=== PATIENT | male | born 1975 | race Caucasian/White ===

== ENCOUNTER 2021-05-16 09:23 | Emergency (ER) | payer MEDICARE, MEDICAID, SELFPAY ==
--- NOTE | 2021-05-16 09:45 | DI.RAD_ITS ---
Exam(s) XR HAND LT COMPLETE EXAM: XR HAND LT COMPLETE CLINICAL HISTORY: shut in door, pain. TECHNIQUE: 2D digital imaging was performed. COMPARISON: No exams were available for comparison FINDINGS: No evidence of acute fracture or dislocation. However, there is a foreign body noted in the soft tis sues of the 2nd-index finger at the level of the middle phalanx, located palm are-lateral. This is a pproximately 4 millimeters in from the skin. It exhibits less than metallic density. No other soft tissue densities noted. Deformity in the neck of the 5th metacarpal has appearance of a healed fract ure site. IMPRESSION: Findings as above but without evidence of acute fracture. DATA REPOSITORY: RADIATION DOSE DELIVERED:
[2021-05-16 09:50] VITALS: BP 117/83; PULSE 73; RESP 16; TEMP 36.8; O2SAT 99
--- NOTE | 2021-05-16 09:52 | ED.GENADUL_ITS ---
Discharge Plan Disposition Patient Disposition: HOME Condition: Stable Discharge Details Clinical Impression: Finger injury Primary Care Provider: None,None ED Provider: Irving Motley Home Meds and New Rx's Prescriptions: Continued triamcinolone acetonide 80 GM cream 0 gm Topical TID PRN PRN (Reason: Itching) Qty: 1 RF: 0 Discharge Instructions Instructions: Finger Sprain (ED) Additional Instructions: Official report of your x-ray has not been completed, if it reveals anything I will personally contact you. Kayden taping and a finger splint as needed, advance activity as tolerated. [id number] Tylenol and/or Motrin as directed for discomfort. Rest, elevate, cool compresses every 2 hours for 20 minutes. Please watch for new or worsening symptoms and return to the ER for any concern Medical Decision Making 46-year-old gentleman presents with crush injury to his right second and third digits. Neuro, vascular, tendon intact. No obvious deformity. Will obtain x- ray of his hand to rule out bony abnormality. Will perform digital block of the third digit. No subungual hematoma present. Using a total of 8 cc, [id number] mixture of 0.5% bupivacaine and 2% lidocaine performed a digital block of the third digit, patient tolerated well, no complications. Patient now asymptomatic X-ray read by me as no acute fracture or dislocation. Question foreign body of the third digit but this clinically is not related to his injury today. Patient would like to be discharged, does not want to wait for the official read. I will contact him if the official read is different than my pulmonary read. Second and third fingers kayden taped and AlumaFoam splint applied Medical Records Medical records reviewed: Yes I reviewed the patient's medical records. Imaging Data Radiologic Study: Attestation: I personally reviewed and interpreted this imaging study as follows: Imaging: X-Ray Radiologist's impression: Exam(s) XR HAND LT COMPLETE EXAM: XR HAND LT COMPLETE CLINICAL HISTORY: shut in door, pain. TECHNIQUE: 2D digital imaging was performed. COMPARISON: No exams were available for comparison FINDINGS: No evidence of acute fracture or dislocation. However, there is a foreign body noted in the soft tissues of the 2nd-index finger at the level of the middle phalanx, located palm are-lateral. This is approximately 4 millimeters in from the skin. It exhibits less than metallic density. No other soft tissue densities noted. Deformity in the neck of the 5th metacarpal has appearance of a healed fracture site. IMPRESSION: Findings as above but without evidence of acute fracture. HPI General Mode of arrival: ambulatory . Date/Time Provider Initiated Documentation: 05/16/21 09:52 . Limitations to Documentation: no limitations . Information obtained by: patient . HPI Narrative: This is a 46-year-old gentleman, [id number], denies significant past medical history, presenting for left hand injury after shutting his second and third digits in a truck door. This occurred around 730 this morning. Reports the pain in the index finger is mild, has full range of motion, pain in the middle finger is more severe and worse with movement, has a hard time moving his DIP. Reports minimal tingling in the tip of his third finger. Denies any other injury. Denies break in the skin. Did not take any medication prior to arrival. Related Data Home Medications Medication Instructions Recorded Confirmed triamcinolone acetonide 0 gm TOPICAL TID PRN PRN #1 tube 11/29/14 05/16/21 Previous Rx's Medication Instructions Recorded triamcinolone acetonide 0 gm TOPICAL TID PRN PRN #1 tube 11/29/14 Allergies Allergy/AdvReac Type Severity Reaction Status Date / Time No Known Allergies Allergy Unverified 05/16/21 09:51 General Stated Complaint: Orthopedic KALINA: 4 Review of Systems Constitutional Constitutional: Denies weakness Musculoskeletal Musculoskeletal: Denies deformity, Reports arthralgias, Denies numbness, Reports stiffness and Reports tingling Integumentary/Breasts Skin/Breast: Denies erythema Neurologic Neurologic: Denies numbness, Reports tingling and Denies weakness [facility] Social History Smoking/Tobacco Use Status: Current every day Tobacco Type: cigarettes Smoking risk assessment performed?: Yes Alcohol Intake: never Drug use: Daily Substance use type: marijuana Do you feel safe at home: Yes Do you feel safe in your relationship?: Yes Exam Const General: cooperative, healthy appearing, comfortable and no acute distress Orientation: alert and awake [facility] Head: normal to inspection, normocephalic and atraumatic Eyes General: appearance normal, both eyes and all related structures Conjunctivae: conjunctivae normal Neck Neck: normal visual inspection, trachea midline and supple Resp Effort & Inspection: normal respiratory effort and able to speak in complete sentences Cardio Rate: regular rate Rhythm: regular rhythm Skin General skin exam: no rashes or lesions noted Neuro General: patient alert, patient awake, moves all extremities and no focal motor deficits Cognition: normal cognition Sensory Exam: no sensory deficits noted Extrem General: capillary refill normal Hand/finger images: 1. Diffuse mild discomfort. Skin is intact. Index finger 5-5 strength, neuro, vascular, tendon intact. Normal capillary refill. No subungual hematoma. No deformity. Third digit reveals full extension, limited flexion of the DIP secondary to pain. Tendon function appears to be intact. Skin intact. No subungual hematoma. No deformity. Normal radial pulse as well. Psych Appearance: grossly normal Mental Status: mental status grossly normal Course Vital Signs Vital signs: Vital Signs Temperature 36.8 C 05/16/21 09:50 Pulse 73 05/16/21 09:50 Respiratory Rate 16 05/16/21 09:50 Blood Pressure 117/83 05/16/21 09:50 Pulse Oximetry 99 05/16/21 09:50 Temperature 36.8 C 05/16/21 09:50 Temperature Source Skin 05/16/21 09:50 Pulse 73 05/16/21 09:50 Respiratory Rate 16 05/16/21 09:50 Respiratory Effort Non-Labored 05/16/21 09:52 Blood Pressure 117/83 05/16/21 09:50 Blood Pressure Position Sitting 05/16/21 09:50 Pulse Oximetry 99 05/16/21 09:50 Oxygen Delivery Method Room Air 05/16/21 09:50 Oxygen Flow Rate 0 05/16/21 09:50 Pain Level 5 05/16/21 09:50
== END 2021-05-16 11:33 | disposition home or self-care (01) ==
PROVIDERS: Emergency Provider Physician Assistant
DX: S67.193A Crushing injury of left middle finger, initial encounter (principal); S67.191A Crushing injury of left index finger, initial encounter; W23.0XXA Caught, crushed, jammed, or pinched between moving objects, initial encounter
CPT/HCPCS: 29130; 99283; 73130

== ENCOUNTER → 2022-02-12 16:52 | Outpatient (CLI) | payer MEDICARE, MEDICAID, SELFPAY ==
--- NOTE | 2022-02-12 | DI.RAD_ITS ---
Exam(s) XR SHOULDER LT COMPLETE 2+V EXAM: XR SHOULDER LT COMPLETE 2+V CLINICAL HISTORY: PAIN LT SHOULDER M25.512, PAIN FOR YEARS WORSE LAST COUPLE DAYS, EVALUATE. TECHNIQUE: 2D digital imaging was performed. Three views. COMPARISON: CR CHEST 2 VIEWS PA,LAT from 01/23/2010 FINDINGS: BONES: No acute fracture is present. . No bony destructive lesion is seen. JOINTS: No dislocation present. No significant degenerative changes. Visualized portions of the lef t ribs are unremarkable. SOFT TISSUE: Normal. No tendon or joint space calcifications are seen. IMPRESSION: Unremarkable radiographs of the left shoulder. DATA REPOSITORY: RADIATION DOSE DELIVERED:
== END ==
PROVIDERS: Visit Provider Physician Assistant Medical
DX: M25.512 Pain in left shoulder (principal)
CPT/HCPCS: 73030

== ENCOUNTER 2022-05-27 09:51 | Emergency (ER) | payer MEDICARE, MEDICAID, SELFPAY ==
[2022-05-27] VITALS (54 sets, daily range): BP systolic 98–146; BP diastolic 71–113; PULSE 51–81; RESP 8–26; TEMP 36.8; O2SAT 94–100
--- NOTE | 2022-05-27 09:45 | RT.EKG_ITS ---
APPROVED REPORT Exam: Resting ECG Reason for Exam: chest pain Patient Location: E HR:70 bpm ECG Measurements Heart Rate 70 AXIS IL 176 P 78 QRSd 84 QRS 49 QT 375 T 65 QTc 393 Conclusion Sinus rhythm...normal P axis, V-rate 60- 99 Atrial premature complex...SV complex w/ short R-R interval
--- NOTE | 2022-05-27 09:57 | ED.GENADUL_ITS ---
Discharge Plan Disposition Patient Disposition: HOME Condition: Improving Discharge Details Clinical Impression: Chest pain, Pulmonary nodule Primary Care Provider: None,None ED Provider: Irving Motley Home Meds and New Rx's Prescriptions: No Action No Known Home Meds Discharge Instructions Instructions: Chest Pain (ED) Additional Instructions: At this time your rapid cardiac rule out here in the ER is unremarkable. Your pain and symptoms have resolved completely. Given your presentation and overall risk I have recommended admission for further evaluation but you have declined and would rather pursue this as an outpatient. Please take a baby aspirin daily. Please watch for new or worsening symptoms and return immediately to the ER. I have placed you on our care management list to expedite outpatient primary care follow-up to set up initial PCP visit, further evaluation of your chest pain and pulmonary nodules. I am also setting you up for an outpatient stress test for further evaluation of your chest pain. Discharge Data Discharge Date/Time-TO BE ENTERED AT DEPARTURE: 05/27/22 14:48 Medical Decision Making This is a 47-year-old gentleman, denies significant past medical history, is a smoker, does not regularly seek medical attention, is presenting to the ER today for chest pressure associated with intermittent sharp pain as well as discomfort radiating down his left arm with paresthesias. He states this began while he was working, lifting boxes, denies injury. Clinically he appears well, nontoxic, hemodynamically stable. Plan is to obtain a cardiac work-up, provide full dose aspirin, and will obtain CTA of his chest to rule out PE-dissection, as he does report pain radiating into his back. Differential is broad, includes but not excluded to ACS, PE, dissection, pancreatitis, musculoskeletal etiology, pneumonia, etc. Patient given a single full dose aspirin. Upon reevaluation he denies any change in his discomfort. At this time I believe giving nitro is reasonable. With 3 nitro total his pain went from a 7 down to a 5 down to 3 down to a 0. Patient is currently asymptomatic. Laboratory values do not reveal any obvious emergent process. D-dimer is unremarkable at 183, electrolytes normal, no evidence of leukocytosis, normal renal function, mag 2.1 troponin less than 50 BNP 49 COVID-negative lipase 117. CT reveals a small pericardial effusion and to lung nodules. Discussed findings with patient. Discussed the importance of outpatient follow-up regarding both. Patient remains asymptomatic and prefer to be discharged home. I did convey my concern with him regarding his overall presentation and did not feel as though observation admission to our facility for further cardiac work-up was indicated. Patient understands this, declines, and assures me that he will return to the ER for new or worsening symptoms. He is agreeable to awaiting a delta troponin. Repeat EKG performed at 1329 reveals sinus bradycardia, ventricular to 57, no STEMI. Delta troponin remains less than 50. Upon reevaluation he is resting comfortably, remains asymptomatic, and hemodynamically stable. We once again discussed his risk factors, overall presentation and my recommendations for admission. He is appreciative of this but declines. He is of sound mind and has the capacity to make this decision. I will place him on the care management list to help expedite outpatient primary care follow-up and I will also set him up for an outpatient stress test. Strict discharge and return precautions were provided. Patient understands, is agreeable to this plan, and has no additional questions or concerns upon discharge. This documentation was generated using [employer] system, please disregard any oddities of phrase or misspellings. Medical Records Medical records reviewed: Yes I reviewed the patient's medical records. Imaging Data Radiologic Study: Attestation: I personally reviewed and interpreted this imaging study as follows: Imaging: CT Scan Radiologist's impression: Exam(s) CT CHEST PE CTA EXAM: CT CHEST PE CTA CLINICAL HISTORY: chest pain, radiates to back, sob. TECHNIQUE: Imaging Protocol: CT angiography of the chest was performed using pulmonary embolus protocol. Multi planar reconstructions were performed. CONTRAST MATERIAL: Intravenous: Omnipaque 350 Contrast volume: 100 cc COMPARISON: CR CHEST 2 VIEWS PA,LAT from 01/23/2010 FINDINGS: CHEST: PULMONARY ARTERIES: There are no intraluminal filling defects to suggest acute pulmonary emboli. LUNGS: There are emphysematous changes in both lung joseph.. There are no confluent infiltrates nor pleural effusions although there are dependent markings in both lung bases evident. In addition, there is a noncalcified right lower lobe nodule measuring 8 by 7 millimeters (series 4/image 37). Another smaller 4-5 millimeter nodule seen immediately adjacent to this. No other nodule seen in either lung field. No significant focal findings in the trachea and mainstem bronchi. MEDIASTINUM: There is no hilar nor mediastinal adenopathy. Visualized thyroid unremarkable. CARDIAC: Heart size is normal. There is a small anteriorly located pericardial effusion with maximum thickness 7 millimeters.Caliber of the thoracic aorta is within normal limits. No evidence of aortic dissection. There is no significant shift of the interventricular septum. PARTIALLY VISUALIZED UPPERMOST ABDOMEN: No obvious findings OSSEOUS: No significant osseous lesions.. IMPRESSION: 1. No evidence of acute pulmonary emboli. No evidence of pulmonary infarction.No aortic dissection. There is, however, small pericardial effusion evident. Maximum thickness is 7 millimeters. 2. There are 2 adjacent nodules in the right lower lobe, the larger of the 2 measuring 8 x 7 millimeters. This requires follow-up to rule out malignancy. 3. No intrathoracic adenopathy evident. Lab Data Lab results reviewed: Yes I reviewed the patient's lab results. Labs: Laboratory Tests Range/Units 05/27/22 05/27/22 05/27/22 10:00 10:00 10:00 WBC (4.4-10.8) 10^3/uL 9.44 RBC (4.36-5.78) 10^6/uL 5.10 Hgb (13.5-17.5) g/dL 15.6 Hct (40.0-50.0) % 45.2 MCV (80-95) fL 89 MCH (27.0-33.0) pg 30.6 MCHC (32.0-36.0) % 34.5 RDW (11.8-14.1) % 11.9 Plt Count (130-400) 10^3/uL 208 MPV (8.0-11.0) fL 10.6 Immature Gran % 0.2 Neutrophils % 63.8 Lymphocytes % 25.4 Monocytes % 7.3 Eosinophils % 2.3 Basophils % 1.0 Nucleated RBC % (0.0-0.3) % 0.0 Absolute Neutrophils (1.2-6.7) 10^3/uL 6.02 Absolute Lymphocytes (1.2-3.4) 10^3/uL 2.40 Absolute Monocytes (0.1-0.8) 10^3/uL 0.69 Absolute Eosinophils (0.0-0.7) 10^3/uL 0.22 Absolute Basophils (0.0-0.2) 10^3/uL 0.09 PT (9.3-11.0) sec 10.5 INR (0.9-1.1) 1.0 APTT (21.0-27.5) sec 25.2 D-Dimer (<500) ng/mlFEU 183 Sodium (136-145) mmol/L 139 Potassium (3.5-5.1) mmol/L 4.0 Chloride (98-107) mmol/L 103 Carbon Dioxide (21.0-32.0) mmol/L 28.4 Anion Gap (3-11) mmol/L 7.6 BUN (7-18) mg/dL 11 Creatinine (0.70-1.30) mg/dL 1.1 Estimated GFR/1.73 m2 (mL/min/1.73m2) >= 60.00 Glucose (74-106) mg/dL 103 Calcium (8.5-10.1) mg/dL 8.6 Magnesium (1.8-2.4) mg/dL 2.1 Total Bilirubin (0.2-1.0) mg/dL 0.5 AST (15-37) U/L 14 L ALT (16-63) U/L 17 Alkaline Phosphatase (46-116) U/L 45 L Troponin I (<or=60) ng/L < 50 NT-Pro-B Natriuret Pep (<300) pg/mL 49 Total Protein (6.4-8.2) g/dL 8.1 Albumin (3.4-5.0) g/dL 4.4 Lipase (73-393) U/L COVID-19 Source SARS-CoV-2 (PCR) (Negative) Range/Units 05/27/22 05/27/22 05/27/22 10:00 10:16 13:27 WBC (4.4-10.8) 10^3/uL RBC (4.36-5.78) 10^6/uL Hgb (13.5-17.5) g/dL Hct (40.0-50.0) % MCV (80-95) fL MCH (27.0-33.0) pg MCHC (32.0-36.0) % RDW (11.8-14.1) % Plt Count (130-400) 10^3/uL MPV (8.0-11.0) fL Immature Gran % Neutrophils % Lymphocytes % Monocytes % Eosinophils % Basophils % Nucleated RBC % (0.0-0.3) % Absolute Neutrophils (1.2-6.7) 10^3/uL Absolute Lymphocytes (1.2-3.4) 10^3/uL Absolute Monocytes (0.1-0.8) 10^3/uL Absolute Eosinophils (0.0-0.7) 10^3/uL Absolute Basophils (0.0-0.2) 10^3/uL PT (9.3-11.0) sec INR (0.9-1.1) APTT (21.0-27.5) sec D-Dimer (<500) ng/mlFEU Sodium (136-145) mmol/L Potassium (3.5-5.1) mmol/L Chloride (98-107) mmol/L Carbon Dioxide (21.0-32.0) mmol/L Anion Gap (3-11) mmol/L BUN (7-18) mg/dL Creatinine (0.70-1.30) mg/dL Estimated GFR/1.73 m2 (mL/min/1.73m2) Glucose (74-106) mg/dL Calcium (8.5-10.1) mg/dL Magnesium (1.8-2.4) mg/dL Total Bilirubin (0.2-1.0) mg/dL AST (15-37) U/L ALT (16-63) U/L Alkaline Phosphatase (46-116) U/L Troponin I (<or=60) ng/L < 50 NT-Pro-B Natriuret Pep (<300) pg/mL Total Protein (6.4-8.2) g/dL Albumin (3.4-5.0) g/dL Lipase (73-393) U/L 117 COVID-19 Source Nasal/Nares SARS-CoV-2 (PCR) (Negative) Negative ECG Data Attestation: I personally reviewed and interpreted this ECG (s) as follows: Interpretation: Sinus rhythm, ventricular to 70. Atrial premature complex. No STEMI. HPI General Mode of arrival: wheelchair . Date/Time Provider Initiated Documentation: 05/27/22 09:52 . Limitations to Documentation: no limitations . Information obtained by: patient . History of Present Illness 47 year old M presents to the emergency department with the chief complaint of chest pain, described as moderate, with intensity rated at 7. Quality is described as sharp and other (pressure), and is localized to the chest. Patient extremity (left upper ). Patient started experiencing this hour(s) (1) and it has been constant (pressure) and intermittent (sharp). No relieving factors improve symptom(s), No exacerbating factors reported . Patient notes shortness of breath and other (LUE paresthesias). Patient did receive the following treatments prior to arrival, none Related Data Home Medications Medication Instructions Recorded Confirmed Unknown [No Known Home Meds] 05/27/22 05/27/22 Allergies Allergy/AdvReac Type Severity Reaction Status Date / Time No Known Allergies Allergy Unverified 05/27/22 13:10 General KALINA: 4 Review of Systems Constitutional Constitutional: Denies fatigue, Denies fever(s), Denies headache(s) and Denies weakness Eyes Eyes: Denies change in vision ENT Ears, Nose, Mouth, and Throat: Denies headache(s) and Denies neck pain Cardiovascular Cardiovascular: Reports chest pain and Reports dyspnea Respiratory Respiratory: Denies cough and Reports dyspnea Gastrointestinal Gastrointestinal: Denies abdominal pain, Denies nausea and Denies vomiting Musculoskeletal Musculoskeletal: Reports back pain (left upper), Denies neck pain, Denies numbness and Reports tingling Integumentary/Breasts Skin/Breast: Denies rash Neurologic Neurologic: Denies headache(s), Denies numbness, Reports tingling and Denies weakness Endocrine Endocrine: Denies fatigue Hematologic/Lymphatic Hematologic/Lymphatic: Denies easy bleeding and Denies easy bruising PFSH All Active Problems (Updated 05/28/22 @ 09:08 by LUISA Grady) Chest pain (Acute) Pulmonary nodule (Acute) Mood disorder (Acute) Antisocial personality disorder (Acute) Tobacco abuse (Acute) PTSD (post-traumatic stress disorder) (Acute) Borderline personality disorder (Acute) Finger injury (Acute) Social History Smoking/Tobacco Use Status: Current every day Tobacco Type: cigarettes Smoking risk assessment performed?: Yes Alcohol Intake: never Drug use: Daily Substance use type: marijuana Do you feel safe at home: Yes Do you feel safe in your relationship?: Yes Exam Const General: cooperative, healthy appearing, comfortable and no acute distress Orientation: alert, awake and oriented x3 HENMT Head: normal to inspection, normocephalic and atraumatic Face and sinus: normal facial exam Mouth: moist mucous membranes Eyes General: appearance normal, both eyes and all related structures Conjunctivae: conjunctivae normal Neck Neck: normal visual inspection, full ROM, no meningeal signs, trachea midline, supple and nontender Chest Chest: normal inspection of the chest and normal palpation of entire chest wall Resp Effort & Inspection: normal respiratory effort and able to speak in complete sentences Auscultation: clear to auscultation bilaterally Cardio Rate: regular rate Rhythm: regular rhythm GI Inspection: normal to inspection Palpation: soft, not firm, no guarding, no pulsatile masses and nontender Auscultation: normal bowel sounds Back/Spine/Pelvis Back: no CVA tenderness and No back tenderness Skin General skin exam: no rashes or lesions noted Neuro General: patient alert, patient awake, patient oriented x3, moves all extremities and no focal motor deficits Cognition: normal cognition Speech: speech normal Gait: normal gait Motor: muscle tone normal throughout Sensory Exam: no sensory deficits noted Extrem General: normal to inspection, full ROM, capillary refill normal, no pedal edema and no calf tenderness Psych Appearance: grossly normal Mental Status: mental status grossly normal
--- NOTE | 2022-05-27 10:00 | DI.CT_ITS ---
Exam(s) CT CHEST PE CTA EXAM: CT CHEST PE CTA CLINICAL HISTORY: chest pain, radiates to back, sob. TECHNIQUE: Imaging Protocol: CT angiography of the chest was performed using pulmonary embolus celeste col. Multi planar reconstructions were performed. CONTRAST MATERIAL: Intravenous: Omnipaque 350 Contrast volume: 100 cc COMPARISON: CR CHEST 2 VIEWS PA,LAT from 01/23/2010 FINDINGS: CHEST: PULMONARY ARTERIES: There are no intraluminal filling defects to suggest acute pulmonary emboli. LUNGS: There are emphysematous changes in both lung joseph.. There are no confluent infiltrates nor pleural effusions although there are dependent markings in both lung bases evident. In addition, the re is a noncalcified right lower lobe nodule measuring 8 by 7 millimeters (series 4/image 37). Anoth er smaller 4-5 millimeter nodule seen immediately adjacent to this. No other nodule seen in either l jose field. No significant focal findings in the trachea and mainstem bronchi. MEDIASTINUM: There is no hilar nor mediastinal adenopathy. Visualized thyroid unremarkable. CARDIAC: Heart size is normal. There is a small anteriorly located pericardial effusion with maximum thickness 7 millimeters.Caliber of the thoracic aorta is within normal limits. No evidence of aortic dissection. There is no significant shift of the interventricular septum. PARTIALLY VISUALIZED UPPERMOST ABDOMEN: No obvious findings OSSEOUS: No significant osseous lesions.. IMPRESSION: 1. No evidence of acute pulmonary emboli. No evidence of pulmonary infarction.No aortic dissection. There is, however, small pericardial effusion evident. Maximum thickness is 7 millimeters. 2. There are 2 adjacent nodules in the right lower lobe, the larger of the 2 measuring 8 x 7 millimet ers. This requires follow-up to rule out malignancy. 3. No intrathoracic adenopathy evident. RADIATION DOSE DELIVERED: 392.93mGy.cm Total DLP DATA REPOSITORY: All CT scans at this facility are submitted to the National Radiology Data Registry (NRDR) Dose Index Registry (DIR) with the [employer] ([employer]). RADIATION OPTIMIZATION: All CT scans at this facility use at least one of these dose optimization te chniques: automated exposure control; mA and/or kV adjustment per patient size (includes targeted exa ms where dose is matched to clinical indication); or iterative reconstruction.
[2022-05-27] MEDS: Aspirin 81 MG CHEW 324 MG CH (10:15)
[2022-05-27] MEDS: Normal Saline 1,000 ML 125 ML IV (10:17)
[2022-05-27 10:22] LABS: Source Nasal/Nares
[2022-05-27 10:23] LABS: Abs Immature Grans 0.02 10^3/uL (0.0-0.06); Absolute Basophil Count 0.09 10^3/uL (0.0-0.2); Absolute Eosinophil Count 0.22 10^3/uL (0.0-0.7); Absolute Monocyte Count 0.69 10^3/uL (0.1-0.8); Absolute Neutrophil Count 6.02 10^3/uL (1.2-6.7); Eosinophils % 2.3; HCT 45.2 % (40.0-50.0); HGB 15.6 g/dL (13.5-17.5); Immature Grans % 0.2; Lymphocytes % 25.4; MCH 30.6 pg (27.0-33.0); MCHC 34.5 % (32.0-36.0); MCV 89 fL (80-95); MPV 10.6 fL (8.0-11.0); Monocytes % 7.3; Neutrophils % 63.8; Platelet Count 208 10^3/uL (130-400); RDW 11.9 % (11.8-14.1); RDW-SD 38.9 fL; WBC 9.44 10^3/uL (4.4-10.8)
[2022-05-27 10:37] LABS: PTT Activated 25.2 sec (21.0-27.5); Prothrombin Time 10.5 sec (9.3-11.0)
[2022-05-27 10:45] LABS: ALT 17 U/L (16-63); AST 14 U/L (15-37); Albumin 4.4 g/dL (3.4-5.0); Alkaline Phosphatase 45 U/L (46-116); Anion Gap 7.6 mmol/L (3-11); BUN 11 mg/dL (7-18); Bilirubin, Total 0.5 mg/dL (0.2-1.0); CO2 28.4 mmol/L (21.0-32.0); CREATININE 1.1 mg/dL (0.70-1.30); Calcium 8.6 mg/dL (8.5-10.1); Chloride 103 mmol/L (98-107); Glucose 103 mg/dL (74-106); Magnesium 2.1 mg/dL (1.8-2.4); NT-proBNP 49 pg/mL (<300); Sodium 139 mmol/L (136-145); Total Protein 8.1 g/dL (6.4-8.2); Troponin I < 50 ng/L (<or=60)
[2022-05-27 10:53] LABS: COVID-19 PCR Negative (Negative)
[2022-05-27 10:54] LABS: D-Dimer 183 ng/mlFEU (<500)
[2022-05-27] MEDS: nitroGLYcerin 0.4 MG TAB SL ×3 (10:55→11:53)
[2022-05-27] MEDS: Normal Saline Flush 10 ML SYR IVP (10:56)
[2022-05-27] MEDS: Omnipaque 350 MG/ML 100 ML BTL IJ (10:56)
[2022-05-27 11:12] LABS: Lipase 117 U/L (73-393)
--- NOTE | 2022-05-27 13:00 | RT.EKG_ITS ---
APPROVED REPORT Exam: Resting ECG Reason for Exam: Chest pain Patient Location: E HR:57 bpm ECG Measurements Heart Rate 57 AXIS CA 185 P 84 QRSd 85 QRS 50 QT 418 T 62 QTc 406 Conclusion Sinus bradycardia...rate< 60
[2022-05-27 13:53] LABS: Troponin I < 50 ng/L (<or=60)
--- NOTE | 2022-05-27 16:07 | NUR.NOTE ---
Per Irving Motley, patient needs a follow up ruby with a PCP for chest pain, he doesn't have one. Put the referral in the home day care provider's box for follow up. Nursing Note:
--- NOTE | 2022-05-28 15:06 | CMACTNOTE_ITS ---
- If Service Date Differs Date of service: 05/28/22 Time of Service: 15:06 Care Management Activity Note Justyn presents in the ED for chest pain and a pulmonary nodule. At the request of ED provider, ROSA coordinates a referral to Eliza Diaz NP, of [facility], on-call provider, to assist Justyn in obtaining a follow up appointment. ROSA receives a phone call from Karoline, acute care physician at [facility] ([facility]), andrew Alejandra. She advises Justyn stopped by [facility] to tile picker a new patient packet as he wishes to establish care with them. They, however, are unable to provide him with an appointment for several weeks, so Justyn will need to follow up with Eliza Diaz NP, the provider who was information services vice president at the time of his ED visit.
== END 2022-05-27 14:48 | disposition home or self-care (01) ==
PROVIDERS: Emergency Provider Physician Assistant
DX: R07.89 Other chest pain (principal); R91.8 Other nonspecific abnormal finding of lung field; I31.3 Pericardial effusion (noninflammatory); R00.1 Bradycardia, unspecified; F17.210 Nicotine dependence, cigarettes, uncomplicated; Z20.822 Contact with and (suspected) exposure to COVID-19
CPT/HCPCS: 71275; 80053; 83690; 87635; 93005; 96360; 96361; 99284; 99285; 83735; 83880; 84484; 85025; 85379; 85610; 85730; 93010; J3490

== ENCOUNTER 2022-06-02 02:03 | Outpatient (CLI) | payer MEDICARE, MEDICAID, SELFPAY ==
--- NOTE | 2022-06-02 09:00 | ETT_ITS ---
APPROVED REPORT Exam: Exercise Treadmill Patient Location: Out-Patient Room/Bed: Stress Nurse: Ryann Yip RN Ordering Provider:CORRINE HERZOG, Contact Number: BMI: 24.36 Baseline Rhythm: Sinus Rhythm,1DHB Indications: CHEST PAIN Medical History Medical History: Pulmonary nodule, Pericardial effusion, PTSD, Tobacco use disorder, Borderline perso nality disorder Cardiac Medications: Aspirin, Nicotine patch Allergies: No known drug allergies Cardiac Risk Factors: FHX of CAD, Smoking (recently quit) Previous Cardiac Procedures: None Pretest Chest Pain Characteristics: None Exercise History: Indeterminate Physical Disabilities: None Lung Sounds: LCTA/diminished bases Heart Sounds: Regular Stress Test Details Test: Exercise stress testing was performed using a Edin protocol. Rest Stress HR Resting HR Supine: 65 bpm Max Heart Rate (APMHR): 174 bpm Resting HR Standin bpm Target HR (85% APMHR): 147 bpm Max HR Achieved: 130 bpm % of APMHR: 74 Recovery HR: 75 bpm HR response to stress: Normal HR response to stress Comment: unable to reach THR d/t severe dyspnea BP Resting BP Supine: 108/72 mmHg Resting BP Standin/68 mmHg Max BP: 158/82 mmHg Recovery BP: 108/70 mmHg BP response to stress: Normal blood pressure response to stress. ECG Resting ECG: Sinus Rhythm, 1st degree AV block Ectopy: None Stress ECG: Sinus Tachycardia ST Change: No significant ST segment changes noted Arrhythmia: PVCs, PVC couplet Recovery ECG: Sinus Rhythm Recovery ST Change: No significant ST segment changes noted Recovery Arrhythmia: None Clinical Reason for Termination: Dyspnea Stress Symptoms: Dyspnea, Dizziness Exercise duration: 08 min59 sec Highest Stage Reached: Stage 3: 3.4 mph at 14% grade. Exercise capacity: 10.16 METs Rate Pressure Product: [id number] Stress ECG Conclusion 1. Resting electrocardiogram showed first-degree AV block 2. Patient exercised on the Edin protocol and completed a workload of 10.16 METS, limited by shortne ss of breath and dizziness 3. Peak heart rate achieved was 74% of predicted for age 4. At submaximal heart rate and achieved workload there was no electrocardiographic evidence of myoca rdial ischemia, though technically the test was nondiagnostic due to inadequate heart rate 5. There were no dysrhythmias Stress Test Summary STAGE Time (mins) Speed (mph) Grade (%) HR BP SpO2 SYMPTOMS METS Supine 65 108/72 Standing 78 108/68 98% 1 3 1.7 10 104 148/74 94% moderate SOB 4.5 2 6 2.5 12 115 148/84 95% 7 3 9 3.4 14 128 152/90 95% severe SOB 10 1 min recovery 103 158/82 95% severe SOB/dizziness 3 min recovery 79 138/76 97% symptoms improved. 6 min recovery 75 108/70
== END 2022-06-02 02:23 ==
PROVIDERS: PCP Physician Assistant; Visit Provider Physician Assistant
DX: R07.9 Chest pain, unspecified (principal); I44.0 Atrioventricular block, first degree
CPT/HCPCS: 93016; 93018; 93017

== ENCOUNTER 2022-06-02 17:07 | Outpatient (REF) | payer MEDICARE, MEDICAID, SELFPAY ==
[2022-06-02 15:59] LABS: Calculated LDL 106 mg/dL (<100); Cholesterol 167 mg/dL (<200); HDL Cholesterol 44 mg/dL (40-60); Triglyceride 86 mg/dL (<150)
== END 2022-06-02 17:08 | disposition home or self-care (01) ==
LOC: NCHCN 17:07
PROVIDERS: Visit Provider Physician Assistant
DX: R07.89 Other chest pain (principal); Z87.19 Personal history of other diseases of the digestive system
CPT/HCPCS: 80061

== ENCOUNTER 2022-12-09 01:45 | Outpatient (CLI) | payer MEDICARE, MEDICAID, SELFPAY ==
--- NOTE | 2022-12-09 09:15 | DI.CT_ITS ---
Exam(s) CT CHEST WO EXAM: CT CHEST WO CLINICAL HISTORY: RT LOWER LOBE PULMONARY NODULE, R91.1. TECHNIQUE: Multi planar reconstructions were performed. CONTRAST MATERIAL: None COMPARISON: CT CT CHEST PE CTA from 05/27/2022 FINDINGS: CHEST: LUNGS: There is again noted the previously described 8 by 7 millimeter noncalcified nodule in the rig ht lower lobe. This is unchanged in size and configuration. The other smaller nodular density adjac ent to it is a decreased in size from the previous study. Otherwise, there is now an area of subpleural infiltrate in the posterior basal segment of the right lower lobe which was not previously present, this measuring 1.5 x 1.2 cm, not associated with pleural effusion. There is also an unchanged 5 x 4 millimeter nodular density in the right middle lobe agai n evident. Also again evident is a thin benign-appearing density in the lateral aspect of the right upper lobe measuring 8 x 2 millimeters, also unchanged. In the opposite-left lung there is a 4 millimeter nodular density in the left lower lobe which does n ot appear to have been previously present. A similar size nodule previously present in the lateral a spect of the left lower lobe is presently decreased in size. There is a tiny calcified granuloma in the left lower lobe again noted. No pleural effusions on either side. MEDIASTINUM: There is no obvious hilar nor mediastinal adenopathy. Visualized thyroid unremarkable.No obvious axillary adenopathy CARDIAC: Heart size is normal. The previously described small pericardial effusion has decreased in size. Caliber thoracic aorta is within normal limits. VISUALIZED UPPER ABDOMEN:No adrenal masses seen. Partially included hypodensities in the right kidne y may represent parapelvic cysts. OSSEOUS: No significant osseous lesions.No fractures.. IMPRESSION: 1. Compared to the CT scan of May 2022 the 8 x 7 millimeter noncalcified nodule in the right lower lobe is unchanged. Other findings in the right lung are stable with the exception of some new infil trate in the posterior basal segment of the right lower lobe which will require follow-up. In addition, there is a new 4 millimeter nodule in the left lower lobe evident. 2. There are no pleural effusions and there is no intrathoracic adenopathy evident. 3. Pericardial effusion previously described has decreased in size. Recommend follow-up CT scan in 6 months. RADIATION DOSE DELIVERED: 563.89mGy.cm Total DLP DATA REPOSITORY: All CT scans at this facility are submitted to the National Radiology Data Registry (NRDR) Dose Index Registry (DIR) with the [employer] ([employer]). RADIATION OPTIMIZATION: All CT scans at this facility use at least one of these dose optimization te chniques: automated exposure control; mA and/or kV adjustment per patient size (includes targeted exa ms where dose is matched to clinical indication); or iterative reconstruction.
== END 2022-12-09 02:05 ==
LOC: DI 01:46
PROVIDERS: PCP Physician Assistant; Visit Provider Physician Assistant
DX: R91.1 Solitary pulmonary nodule (principal)
CPT/HCPCS: 71250

== ENCOUNTER → 2023-12-24 02:44 | Outpatient (CLI) | payer OTHER, MEDICAID, SELFPAY ==
--- NOTE | 2023-12-24 | DI.CT_ITS ---
Exam(s) CT CHEST WO EXAM: CT CHEST WO CLINICAL HISTORY: F/U PULMONARY NODULE,R91.1. TECHNIQUE: Multi planar reconstructions were performed. CONTRAST MATERIAL: None COMPARISON: CT CT CHEST WO from 12/09/2022 FINDINGS: CHEST: LUNGS: The previously described 8 x 7 mm nodule in the right lower lobe remains unchanged. The other adjacent nodule has slightly further decreased in size. With respect of the other smaller lung nodu les, a benign-appearing 2 millimeter nodule in the anterior segment of the left upper lobe is unchang ed. Small nodular density in the left lower lobe is less evident on the present study. Subpleural i ncreased markings over the posterior aspect of the left lower lobe appear unchanged. In the right lung the previously described subpleural infiltrate in the posterior basal segment of th e right lower lobe is unchanged in size but there is increasing surrounding infiltrate not associated with pleural effusion. There is a small 2 millimeters subpleural nodule now evident in the posterio r segment of the right upper lobe, not previously evident. There are no pleural effusions. MEDIASTINUM: There is no obvious hilar nor mediastinal adenopathy. No obvious axillary adenopathy CARDIAC: Heart size is normal. There is no pericardial effusion.Caliber of the thoracic aorta is wit hin normal limits. VISUALIZED UPPER ABDOMEN:No adrenal masses evident. Partially included hypodensities in the right ki dney again noted which may represent parapelvic cysts. Not completely included in the field of view. OSSEOUS: No significant osseous lesions.Fractures.. IMPRESSION: 1. Continued stable appearance of the largest nodule which is again noted to measure 8 x 7 mm and loc ated in the right lower lobe. Other smaller nodules also stable. 2. However, the previously described 15 x 12 millimeter subpleural infiltrate in the posterior basal segment of the right lower lobe has not decreased in size and is associated with some increasing gilma cent infiltrate in the right lower lobe. This requires close follow-up. 3. There are no pleural effusions nor obvious intrathoracic adenopathy. RADIATION DOSE DELIVERED: Total DLP DATA REPOSITORY: All CT scans at this facility are submitted to the National Radiology Data Registry (NRDR) Dose Index Registry (DIR) with the [employer] ([employer]). RADIATION OPTIMIZATION: All CT scans at this facility use at least one of these dose optimization te chniques: automated exposure control; mA and/or kV adjustment per patient size (includes targeted exa ms where dose is matched to clinical indication); or iterative reconstruction.
== END ==
PROVIDERS: PCP Physician Assistant; Visit Provider Physician Assistant
DX: R91.8 Other nonspecific abnormal finding of lung field (principal)
CPT/HCPCS: 71250

== ENCOUNTER 2025-03-22 13:38 | Outpatient (CLI) | payer MEDICARE, MEDICAID, SELFPAY ==
--- NOTE | 2025-03-22 13:19 | DI.RAD_ITS ---
Exam(s) XR KNEE RT 4V+ EXAM: XR KNEE RT 4V+ CLINICAL HISTORY: M25.561 Pain in RT knee, evaluate pathology. TECHNIQUE: 2D digital imaging was performed of the right knee. Four views obtained. Merchant, AP, la teral and PA tunnel views were obtained. COMPARISON: CR RIGHT KNEE COMPLETE from 09/26/2008 FINDINGS: BONES: No acute fracture is present. No bony destructive lesion is seen. There has been interval vin bob of the orthopedic hardware from the proximal tibia. Findings of old tibial plateau fractures are seen. JOINTS: Moderate degenerative changes are seen in the femoral tibial joint characterized by joint spa ce narrowing and osteophytes. There is a small joint effusion. SOFT TISSUE: Normal. IMPRESSION: 1. Old tibial plateau fracture deformity. Interval removal of the orthopedic hardware from the proxi mal tibia. 2. Moderate degenerative changes seen in the femoral tibial joint. DATA REPOSITORY: RADIATION DOSE DELIVERED:
== END 2025-03-22 13:58 ==
PROVIDERS: PCP Physician Assistant; Visit Provider Nurse Practitioner Family
DX: M17.11 Unilateral primary osteoarthritis, right knee (principal)
CPT/HCPCS: 73564